=== PATIENT | male | born 1995 | race Caucasian/White ===

== ENCOUNTER 2017-04-11 18:49 | Emergency (ER) | payer OTHER ==
[~2017-04-11] VITALS: Ht 177.8 cm; Wt 122.5 kg
[~2017-04-11 18:49] MED LIST: ASTHMACORT; IBUP600 PO; MOMENI; MONT10T PO; RXHYDACE PO; [UNRECOGNIZED DRUG - REMARK]
[2017-04-11] MEDS ORDERED: Sudogest60 MG PO (19:52)
[2017-04-11] MEDS ORDERED: Zofran8 MG PO (19:52)
[2017-04-11] MEDS ORDERED: Tamiflu75 MG PO (19:52)
== END 2017-04-11 20:02 | disposition home or self-care (01) ==
LOC: ER 18:49
DX: J11.1 Influenza due to unidentified influenza virus with other respiratory manifestations (principal); J45.909 Unspecified asthma, uncomplicated; Z79.51 Long term (current) use of inhaled steroids
CPT/HCPCS: 99283

== ENCOUNTER 2017-08-05 17:18 | Emergency (ER) | payer OTHER ==
[~2017-08-05] VITALS: Ht 177.8 cm; Wt 120.2 kg
[~2017-08-05 17:18] MED LIST changes: +Sudogest60 MG PO; +Tamiflu75 MG PO; +Zofran8 MG PO
[2017-08-05] MEDS ORDERED: Bactrim Ds Tab1 EACH PO (17:56)
== END 2017-08-05 18:02 | disposition home or self-care (01) ==
LOC: ER 17:18
DX: L02.412 Cutaneous abscess of left axilla (principal); L03.112 Cellulitis of left axilla; J45.909 Unspecified asthma, uncomplicated
CPT/HCPCS: 10060; 99283

== ENCOUNTER → 2017-08-08 | Outpatient (CLI) | payer OTHER ==
[~2017-08-08] MED LIST changes: +Bactrim Ds Tab1 EACH PO
== END ==
LOC: LAB SHORT 14:17 → LAB EV 14:17
DX: L02.419 Cutaneous abscess of limb, unspecified (principal)
CPT/HCPCS: 87070; 87075; 87077; 87147; 87186; 87205